=== PATIENT | male | born 1955 | race Caucasian/White ===

== ENCOUNTER 2022-11-14 07:48 | Day surgery (SDC) | payer OTHER ==
[~2022-11-14] VITALS: Ht 172.7 cm; Wt 77.1 kg
[~2022-11-14 07:48] MED LIST: RIVA10TA PO
[2022-11-14] MEDS ORDERED: CIPROFLOXACIN 400MG/200ML 200 ML IV ONE (08:56)
[2022-11-14] MEDS ORDERED: METOCLOPRAMIDE HCL 5MG/ml INJ 2ml VIAL IV PRN (09:15)
[2022-11-14] MEDS ORDERED: HYDROmorphone HCL 2 MG/ML VL/or syr IV PRN (09:15)
[2022-11-14] MEDS ORDERED: MORPHINE SULFATE INJ 2 MG/ml SYRG IV PRN (09:15)
[2022-11-14] MEDS ORDERED: ROCURONIUM 10MG/ML 10ML VIAL IV ONE (09:19)
[2022-11-14] MEDS ORDERED: LIDOCAINE 2% JELLY 11ml (GLYDO) ONE (09:24)
[2022-11-14] MEDS ORDERED: DexAMETHasone SOD PHOS 10MG/1ML VIAL INJ ONE (09:29)
[2022-11-14] MEDS ORDERED: GLYCOPYRROLATE 0.2 MG/ML 1ML VIAL ONE (09:29)
[2022-11-14] MEDS ORDERED: NEOSTIGMINE 1 MG/ML INJ (10mg/10ML VIAL) ONE (09:29)
[2022-11-14] MEDS ORDERED: MIDAZOLAM HCL 2MG/2ML 2ml VIAL (1mg/ml) ONE (09:29)
[2022-11-14] MEDS ORDERED: ONDANSETRON HCL 4 MG/2 ML VIAL ONE (09:29)
[2022-11-14] MEDS ORDERED: fentaNYL CITRATE 100 MCG/2 ML VL ONE (09:29)
[2022-11-14] MEDS ORDERED: PROPOFOL 10 MG/ML 20 ML IV ONE (09:29)
[2022-11-14] MEDS ORDERED: SODIUM CHLORIDE LOCK 10 ML ONE (09:29)
[2022-11-14] MEDS ORDERED: MEPERIDINE HCL (50 MG/ML) 1 ML VIAL ONE (09:29)
[2022-11-14] MEDS ORDERED: SUGAMMADEX 200mg/2ml Vial (100MG/ML) IV ONE (10:22)
[2022-11-14] MEDS: HYDROmorphone HCL 2 MG/ML VL/or syr IV PRN ×4 (10:56→11:26)
[2022-11-14 12:05] VITALS: BP 146/72
== END 2022-11-14 12:40 | disposition home or self-care (01) ==
LOC: SUR 07:48
PROVIDERS: ATTEND Urology
DX: C67.9 Malignant neoplasm of bladder, unspecified (principal); C67.2 Malignant neoplasm of lateral wall of bladder; I10 Essential (primary) hypertension; F17.210 Nicotine dependence, cigarettes, uncomplicated; Z98.890 Other specified postprocedural states; Z79.899 Other long term (current) drug therapy; Z20.822 Contact with and (suspected) exposure to COVID-19
CPT/HCPCS: 52235; 88305; J0744; J1100; J1170; J2175; J2250; J2270; J2405; J2704; J3010; U0003

== ENCOUNTER 2023-05-08 08:37 | Day surgery (SDC) | payer OTHER ==
[~2023-05-08] VITALS: Ht 172.7 cm; Wt 74.8 kg
[~2023-05-08 08:37] MED LIST changes: +ATOR20TA50 PO; +GABA-339 PO; +HYDR-4072 PO; +LISI2.5T47 PO; -RIVA10TA PO; +RIVA20TA PO
[2023-05-08] MEDS ORDERED: CIPROFLOXACIN 400MG/200ML 200 ML IV ONE (08:48)
[2023-05-08] MEDS ORDERED: HYDROmorphone HCL 2 MG/ML VL/or syr IV PRN ×2 (11:30)
[2023-05-08] MEDS ORDERED: MORPHINE SULFATE INJ 2 MG/ml SYRG IV PRN (11:30)
[2023-05-08] MEDS ORDERED: METOCLOPRAMIDE HCL 5MG/ml INJ 2ml VIAL IV PRN (11:30)
[2023-05-08] MEDS ORDERED: DexAMETHasone SOD PHOS 10MG/1ML VIAL INJ ONE (11:38)
[2023-05-08] MEDS ORDERED: MEPERIDINE HCL (50 MG/ML) 1 ML VIAL ONE (11:38)
[2023-05-08] MEDS ORDERED: ONDANSETRON HCL 4 MG/2 ML VIAL ONE (11:38)
[2023-05-08] MEDS ORDERED: fentaNYL CITRATE 100 MCG/2 ML VL ONE (11:38)
[2023-05-08] MEDS ORDERED: SODIUM CHLORIDE LOCK 10 ML ONE (11:38)
[2023-05-08] MEDS ORDERED: PROPOFOL 10 MG/ML 20 ML IV ONE (11:38)
[2023-05-08] MEDS ORDERED: MIDAZOLAM HCL 2MG/2ML 2ml VIAL (1mg/ml) ONE (11:38)
[2023-05-08 12:50] VITALS: TEMP 97.2; O2SAT 98
[2023-05-08] MEDS ORDERED: PHENAZOPYRIDINE HCL 100 MG TAB PO ONE (13:45)
[2023-05-08 14:08] VITALS: BP 139/78; PULSE 72; RESP 18; O2SAT 99
== END 2023-05-08 14:22 | disposition home or self-care (01) ==
LOC: SUR 08:37
PROVIDERS: ATTEND Urology
DX: C67.9 Malignant neoplasm of bladder, unspecified (principal); Z98.890 Other specified postprocedural states
CPT/HCPCS: 52234; 88307; J0744; J1100; J2175; J2250; J2405; J2704; J3010